=== PATIENT | male | born 1980 | race Caucasian/White ===

== ENCOUNTER 2018-10-21 16:11 | Emergency (ER) | payer MEDICAID ==
[~2018-10-21] VITALS: Ht 172.7 cm; Wt 77.0 kg
[2018-10-21 23:50] LABS: BASOPHILS % 0.8 % (0.0-2.0); EOSINOPHILS % 1.4 % (0.0-5.0); HEMATOCRIT. 44.9 % (42.0-52.0); HEMOGLOBIN. 15.2 g/dL (14.0-18.0); LYMPHOCYTES % 28.6 % (20.0-50.0); MEAN CORPUSCULAR HEMOGLOBIN 32.5 pg (28.0-32.0); MEAN CORPUSCULAR VOLUME 95.8 fL (80.0-94.0); MEAN PLATELET VOLUME 8.9 fl (7.4-10.4); NEUTROPHILS % 57.2 % (40.0-76.0); PLATELET 213 x1000/uL (130-400); RED BLOOD CELL COUNT 4.68 mill/uL (4.7-6.1); RED CELL DISTRIBUTION WIDTH 14.3 % (11.6-14.6)
[2018-10-21 23:56] LABS: CHLORIDE 105 mEq/L (98-107)
[2018-10-22 05:03] VITALS: BP 112/71
== END 2018-10-22 05:25 | disposition home or self-care (01) ==
LOC: ER 16:11 → EDBD 16:11 → ER 10-22 05:25
DX: K57.32 Diverticulitis of large intestine without perforation or abscess without bleeding (principal); Z04.89 Encounter for examination and observation for other specified reasons
CPT/HCPCS: 36415; 74176; 80053; 83690; 85025; 99284; Z7610

== ENCOUNTER 2018-12-19 17:35 | Emergency (ER) | payer MEDICAID ==
[~2018-12-19] VITALS: Ht 177.8 cm; Wt 101.0 kg
[2018-12-19] MEDS ORDERED: ASPIRIN 81MG TABLET PO ONE (18:45)
[2018-12-19 19:15] LABS: BASOPHILS % 0.3 % (0.0-2.0); EOSINOPHILS % 0.3 % (0.0-5.0); HEMOGLOBIN. 16.6 g/dL (14.0-18.0); LYMPHOCYTES % 16.1 % (20.0-50.0); MEAN CORPUSCULAR VOLUME 95.4 fL (80.0-94.0); MEAN PLATELET VOLUME 8.8 fl (7.4-10.4); MONOCYTES % 9.8 % (2.0-8.0); NEUTROPHILS % 73.5 % (40.0-76.0); PLATELET 225 x1000/uL (130-400); RED BLOOD CELL COUNT 5.03 mill/uL (4.7-6.1); RED CELL DISTRIBUTION WIDTH 13.7 % (11.6-14.6)
[2018-12-19 19:23] LABS: CHLORIDE 104 mEq/L (98-107)
[2018-12-19] MEDS ORDERED: ACETAMINOPHEN 500MG TABLET PO ONE (22:00)
[2018-12-19 22:20] VITALS: BP 151/107
== END 2018-12-19 22:42 | disposition home or self-care (01) ==
LOC: ER 17:35
DX: R07.89 Other chest pain (principal); F20.9 Schizophrenia, unspecified
CPT/HCPCS: 36415; 71045; 74018; 80053; 83880; 84484; 85025; 93005; 99284; Z7610

== ENCOUNTER 2019-08-05 09:44 | Emergency (ER) | payer MEDICAID ==
[~2019-08-05] VITALS: Ht 175.3 cm; Wt 91.0 kg
[2019-08-05] MEDS ORDERED: IBUPROFEN 800MG TABLET PO ONE (10:30)
[2019-08-05 10:36] LABS: BASOPHILS % 0.3 % (0.0-2.0); HEMATOCRIT. 44.7 % (42.0-52.0); HEMOGLOBIN. 15.4 g/dL (14.0-18.0); LYMPHOCYTES % 11.8 % (20.0-50.0); MEAN CORPUSCULAR HEMOGLOBIN 32.7 pg (28.0-32.0); MEAN CORPUSCULAR VOLUME 94.8 fL (80.0-94.0); MEAN PLATELET VOLUME 8.6 fl (7.4-10.4); MONOCYTES % 8.3 % (2.0-8.0); NEUTROPHILS % 79.6 % (40.0-76.0); PLATELET 215 x1000/uL (130-400); RED BLOOD CELL COUNT 4.71 mill/uL (4.7-6.1); RED CELL DISTRIBUTION WIDTH 14.2 % (11.6-14.6)
[2019-08-05 10:44] LABS: CHLORIDE 102 mEq/L (98-107)
[2019-08-05 10:54] LABS: ETHANOL BLOOD < 10 mg/dL
[2019-08-05 11:23] LABS: *AMPHETAMINES SCREEN URINE PRESUMTIVE POSITIVE (NEGATIVE); *BARBITURATES SCREEN URINE NEGATIVE (NEGATIVE)
[2019-08-05 11:24] LABS: *BENZODIAZEPINES SCREEN URINE NEGATIVE (NEGATIVE); *COCAINE SCREEN URINE NEGATIVE (NEGATIVE); CANNABINOID URINE SCREEN NEGATIVE (NEGATIVE); METHADONE URINE SCREEN NEGATIVE (NEGATIVE); OPIATES URINE SCREEN NEGATIVE (NEGATIVE); PHENCYCLIDINE URINE SCREEN NEGATIVE (NEGATIVE)
[2019-08-05] MEDS ORDERED: LORAZEPAM 1MG TABLET PO ONE (16:00)
[2019-08-05 16:36] VITALS: BP 160/98
== END 2019-08-05 16:39 | disposition home or self-care (01) ==
LOC: ER 09:56
DX: R07.89 Other chest pain (principal); F15.229 Other stimulant dependence with intoxication, unspecified; R00.2 Palpitations
CPT/HCPCS: 36415; 71045; 80053; 80305; 80320; 83880; 84443; 84484; 85025; 93005; 99285; G0480

== ENCOUNTER 2019-08-10 18:05 | Emergency (ER) | payer MEDICAID ==
[~2019-08-10] VITALS: Ht 167.6 cm; Wt 109.0 kg
[2019-08-10 22:52] LABS: HEMATOCRIT 47.1 % (42.0-52.0); HEMOGLOBIN 16.4 g/dL (14.0-18.0); MEAN CORPUSCULAR HEMOGLOBIN 32.8 pg (28.0-32.0); MEAN CORPUSCULAR VOLUME 94.5 fL (80.0-94.0); PLATELET 232 x1000/uL (130-400); RED BLOOD CELL COUNT 4.98 mill/uL (4.7-6.1); RED CELL DISTRIBUTION WIDTH 14.1 % (11.6-14.6)
[2019-08-10 22:58] LABS: CHLORIDE 105 mEq/L (98-107)
[2019-08-10 23:01] LABS: ETHANOL BLOOD < 10 mg/dL
[2019-08-10] MEDS ORDERED: SODIUM CHLORIDE 0.9% 1,000 ML IV ONE ×2 (23:15→23:47)
[2019-08-10] MEDS ORDERED: LORAZEPAM 2MG/ML CPJ IV NR (23:47)
[2019-08-10 23:57] VITALS: BP 150/106
== END 2019-08-11 02:58 | disposition home or self-care (01) ==
LOC: ER 18:05
DX: R07.89 Other chest pain (principal); F15.10 Other stimulant abuse, uncomplicated; F10.10 Alcohol abuse, uncomplicated; Y90.0 Blood alcohol level of less than 20 mg/100 ml
CPT/HCPCS: 36415; 80048; 80320; 84484; 85027; 93005; 99284; J7030; G0480

== ENCOUNTER 2019-08-20 00:30 | Emergency (ER) | payer MEDICAID ==
[~2019-08-20] VITALS: Ht 177.8 cm; Wt 109.0 kg
[2019-08-20 05:40] VITALS: BP 142/107
== END 2019-08-20 07:50 | disposition home or self-care (01) ==
LOC: ER 01:07
DX: S00.01XA Abrasion of scalp, initial encounter (principal); F15.10 Other stimulant abuse, uncomplicated; M54.2 Cervicalgia; R00.0 Tachycardia, unspecified; W22.8XXA Striking against or struck by other objects, initial encounter; Y93.89 Activity, other specified; Y92.89 Other specified places as the place of occurrence of the external cause; Y99.8 Other external cause status
CPT/HCPCS: 93005; 99285

== ENCOUNTER 2019-10-21 15:08 | Emergency (ER) | payer MEDICAID ==
[~2019-10-21] VITALS: Ht 172.7 cm; Wt 109.0 kg
[2019-10-21] MEDS ORDERED: LIDOCAINE 1%/EPI 1:100,000 10 ML VIAL IJ ONE (17:00)
[2019-10-21] MEDS ORDERED: BACITRACIN ZINC OINT UDPKT TOP ONE (17:00)
[2019-10-21] MEDS ORDERED: TETANUS, DIPHTHERIA, PERTUSSIS VAC/PF 0.5ML (>7YR OLD) IM ONE (17:00)
[2019-10-21] MEDS ORDERED: ACETAMINOPHEN 500MG TABLET PO ONE (17:00)
[2019-10-21] MEDS ORDERED: LIDOCAINE HCL/EPINEPHRINE 1%-EPI 1:100,000 20 ML VIAL INFIL NR (17:15)
[2019-10-21 19:12] VITALS: BP 116/78
== END 2019-10-21 19:12 | disposition home or self-care (01) ==
LOC: ER 15:08
DX: S91.119A Laceration without foreign body of unspecified toe without damage to nail, initial encounter (principal); X58.XXXA Exposure to other specified factors, initial encounter; Y93.9 Activity, unspecified; Y92.89 Other specified places as the place of occurrence of the external cause; Z23 Encounter for immunization
CPT/HCPCS: 73660; 90471; 90715; 99283; J3490

== ENCOUNTER 2019-11-13 05:24 | Emergency (ER) | payer MEDICAID ==
[~2019-11-13] VITALS: Ht 167.6 cm; Wt 107.0 kg
[2019-11-13] MEDS ORDERED: LORAZEPAM 2MG/ML CPJ IV ONE (07:30)
[2019-11-13 07:32] LABS: CHLORIDE 108 mEq/L (98-107)
[2019-11-13 07:38] LABS: BASOPHILS % 0.3 % (0.0-2.0); HEMATOCRIT. 46.8 % (42.0-52.0); HEMOGLOBIN. 16.1 g/dL (14.0-18.0); LYMPHOCYTES % 13.2 % (20.0-50.0); MEAN CORPUSCULAR VOLUME 95.9 fL (80.0-94.0); MEAN PLATELET VOLUME 9.3 fl (7.4-10.4); NEUTROPHILS % 81.5 % (40.0-76.0); PLATELET 252 x1000/uL (130-400); RED BLOOD CELL COUNT 4.89 mill/uL (4.7-6.1); RED CELL DISTRIBUTION WIDTH 14.6 % (11.6-14.6)
[2019-11-13 08:12] LABS: *AMPHETAMINES SCREEN URINE PRESUMTIVE POSITIVE (NEGATIVE); *BARBITURATES SCREEN URINE NEGATIVE (NEGATIVE); *BENZODIAZEPINES SCREEN URINE NEGATIVE (NEGATIVE)
[2019-11-13 08:13] LABS: *COCAINE SCREEN URINE NEGATIVE (NEGATIVE); CANNABINOID URINE SCREEN NEGATIVE (NEGATIVE); METHADONE URINE SCREEN NEGATIVE (NEGATIVE); PHENCYCLIDINE URINE SCREEN NEGATIVE (NEGATIVE)
[2019-11-13 08:15] LABS: OPIATES URINE SCREEN NEGATIVE (NEGATIVE)
[2019-11-13] MEDS ORDERED: LABETALOL 5MG/ML SYR 20 MG/4 ML SYRINGE IV SCH (09:00)
[2019-11-13 10:38] VITALS: BP 144/90
== END 2019-11-13 10:30 | disposition home or self-care (01) ==
LOC: ER 05:24
DX: T43.621A Poisoning by amphetamines, accidental (unintentional), initial encounter (principal); R07.89 Other chest pain; F15.188 Other stimulant abuse with other stimulant-induced disorder; F14.10 Cocaine abuse, uncomplicated; F12.90 Cannabis use, unspecified, uncomplicated; R03.0 Elevated blood-pressure reading, without diagnosis of hypertension; Y92.89 Other specified places as the place of occurrence of the external cause
CPT/HCPCS: 36415; 71045; 80053; 80305; 83880; 84484; 85025; 93005; 96374; 96375; 99285; J2060; J3490

== ENCOUNTER 2020-11-16 05:22 | Emergency (ER) | payer MEDICAID ==
[~2020-11-16] VITALS: Ht 167.6 cm; Wt 109.0 kg
[2020-11-16 05:45] VITALS: BP 155/107
[2020-11-16] MEDS ORDERED: LORAZEPAM 2MG/ML CPJ IV ONE (05:45)
[2020-11-16] MEDS ORDERED: SODIUM CHLORIDE 0.9% 1,000 ML IV ONE (05:45)
[2020-11-16 05:54] LABS: BASOPHILS % 0.4 % (0.0-2.0); EOSINOPHILS % 0.2 % (0.0-5.0); HEMATOCRIT. 39.9 % (42.0-52.0); HEMOGLOBIN. 13.6 g/dL (14.0-18.0); LYMPHOCYTES % 22.8 % (20.0-50.0); MEAN CORPUSCULAR HEMOGLOBIN 30.8 pg (28.0-32.0); MEAN CORPUSCULAR VOLUME 90.5 fL (80.0-94.0); MEAN PLATELET VOLUME 8.2 fl (7.4-10.4); MONOCYTES % 7.8 % (2.0-8.0); NEUTROPHILS % 68.8 % (40.0-76.0); PLATELET 251 x1000/uL (130-400); RED BLOOD CELL COUNT 4.41 mill/uL (4.7-6.1); RED CELL DISTRIBUTION WIDTH 15.3 % (11.6-14.6)
[2020-11-16 05:57] LABS: CHLORIDE 106 mEq/L (98-107)
[2020-11-16 06:02] LABS: ETHANOL BLOOD 45 mg/dL
== END 2020-11-16 07:08 | disposition home or self-care (01) ==
LOC: ER 05:24
DX: F15.129 Other stimulant abuse with intoxication, unspecified (principal); R00.2 Palpitations; I10 Essential (primary) hypertension; F14.10 Cocaine abuse, uncomplicated; F12.10 Cannabis abuse, uncomplicated
CPT/HCPCS: 36415; 71045; 80053; 80320; 84484; 85025; 93005; 96361; 96374; 99285; J2060; J7030; Z7610; G0480